=== PATIENT | male | born 1985 | race Caucasian/White ===

== ENCOUNTER 2016-07-07 16:08 | Emergency (ER) | payer SELFPAY ==
--- NOTE | 2016-07-12 16:04 | ER ---
ADMIT: 07/07/2016 RM/LOC: ER [facility] MR#: [id number] [address] [id number] [place] [address] Emergency Room Report SEX: M AGE: 30 : 1985 DATE: 07/07/2016 BRIEF ADDENDUM: Please see my T-sheet for complete review of systems, past medical history, and physical exam. CHIEF COMPLAINT: Left wrist laceration. HISTORY OF PRESENT ILLNESS: This is a pleasant 30-year-old, gentleman, who presents to the ER after sustaining a cut to his left wrist at home. The patient states he is going to put the knife away when he caught it on an adjacent knife sustaining a 2 cm laceration to his left wrist. He states there is a mild amount of pain. Some discomfort with movement. He has no numbness or tingling into the distal extremity. Otherwise, he feels well today. COURSE IN THE EMERGENCY ROOM: The patient was seen and examined. He is afebrile. He is nontoxic. He is neurovascularly intact distally from the laceration. He does have a 2 cm laceration in the anterior aspect of the left wrist. PROCEDURE NOTE: Laceration repair. This is a 2 cm linear laceration on the left wrist. He was cleaned with Ultradex and then used 5 mL of lidocaine to anesthetize in a field block fashion. After anesthesia was achieved, the wound was thoroughly irrigated with saline and cleaned with Betadine x3. The wound was explored to base. No obvious foreign body was identified. It was repaired using four 4-0 Prolene sutures. Wound edges were well everted. IMPRESSION: Left wrist laceration. DISPOSITION: The patient was discharged to follow up with Dr. Martin in 7 days to have sutures removed. Use ice as needed for pain. Certainly, Tylenol or ibuprofen for swelling. Monitor for any signs of infection. Clean daily with warm, soapy water. Questions sought and answered to the best of ability and to the patient's satisfaction. Discharged in stable condition. EMERITA Elam / Gelacio Wright MD / modl JOB #: [id number] CC: Gelacio Wright MD, Attending Physician Paul Martin MD, Family Physician
== END 2016-07-07 17:08 | disposition home or self-care (01) ==
LOC: ER 16:08
PROC: 0HQEXZZ Repair Left Lower Arm Skin, External Approach (ICD-10-PCS; principal; 2016-07-07)
DX: S61.512A Laceration without foreign body of left wrist, initial encounter (principal); F17.210 Nicotine dependence, cigarettes, uncomplicated; W26.0XXA Contact with knife, initial encounter